=== PATIENT | male | born 1960 | race Hispanic/Latino ===

== ENCOUNTER → 2017-11-21 10:46 | Outpatient (CLI) | payer OTHER, SELFPAY ==
[2017-11-21 11:20] LABS: Add Manual Diff / Slide Review NO; Basophils Percent Auto 0.6 % (0-2); Eosinophils Percent Auto 1.3 % (2-4); Hemoglobin 18.3 g/dL (13.5-17.5); Lymphocytes Percent Auto 16.5 % (25-40); Mean Corpuscular HGB Conc 33.2 % (30-36); Mean Corpuscular Hemoglobin 29.6 PG (26-34); Mean Corpuscular Volume 89.1 fL (80-100); Monocytes Percent Auto 8.3 % (3-14); Neutrophils Absolute Auto 5000 /uL (3000-5900); Neutrophils Percent Auto 73.3 % (50-75); Platelet Count 177 X10^3/uL (150-400); Red Blood Cell Count 6.18 X10^6/uL (4.5-5.9); Red Cell Distribution Width 14.9 % (11.6-14.8); White Blood Cell Count 6.8 X10^3/uL (4.5-11.0)
[2017-11-21 11:43] LABS: Alanine Aminotransferase 49 IU/L (21-72); Albumin 4.5 g/dL (3.5-5.0); Albumin Globulin Ratio 1.5 (1.0-2.8); Alkaline Phosphatase 120 U/L (38-126); Aspartate Aminotransferase 31 IU/L (17-59); BUN Creatinine Ratio 20.9 (6-22); Blood Urea Nitrogen 23 mg/dL (9-20); Calcium 9.4 mg/dL (8.4-10.2); Carbon Dioxide 24 mmol/L (22-32); Chloride 94 mmol/L (98-107); Cholesterol 225 mg/dL (140-199); Estimated Glomerular Filt Rate > 60.0 mL/min (>60); Globulin 3.1 g/dL (1.7-4.1); Glucose 335 mg/dL (70-100); HDL Cholesterol 32 mg/dL (40-60); HEMOLYSIS < 15 (0-50); LDL Cholesterol Calculated 166 mg/dL (<100); Potassium 5.1 mmol/L (3.4-5.1); Sodium 135 mmol/L (137-145); Total Protein 7.6 g/dL (6.3-8.2); Triglycerides 136 mg/dL (35-150)
[2017-11-21 12:04] LABS: Free T4, Direct Thyroxine 1.09 ng/dL (0.78-2.19)
[2017-11-21 12:18] LABS: Thyroid Stimulating Hormone 1.04 uIU/mL (0.47-4.68)
[2017-11-21 12:25] LABS: Creatinine Urine Random 71.5 mg/dL
[2017-11-21 12:31] LABS: Microalbumin Urine Random 14.3 mg/dL (0-1.6)
[2017-11-21 16:51] LABS: Hemoglobin A1C% w Est Avg Glu > 14.0 % (4.0-6.0)
[2017-11-29 15:35] LABS: Testosterone Free 400.1 pg/mL (35.0-155.0); Testosterone Total 1192 ng/dL (250-1100)
== END ==
PROVIDERS: PCP Internal Medicine; Visit Provider Internal Medicine
DX: E11.9 Type 2 diabetes mellitus without complications (principal); E29.1 Testicular hypofunction; G47.33 Obstructive sleep apnea (adult) (pediatric)
CPT/HCPCS: 36415; 80053; 80061; 82043; 82570; 83036; 84402; 84403; 84439; 84443; 85025

== ENCOUNTER → 2018-02-26 10:24 | Outpatient (CLI) | payer OTHER, SELFPAY ==
[2018-02-26 11:59] LABS: BUN Creatinine Ratio 25.5 (6-22); Blood Urea Nitrogen 28 mg/dL (9-20); Calcium 9.2 mg/dL (8.4-10.2); Carbon Dioxide 30 mmol/L (22-32); Chloride 95 mmol/L (98-107); Estimated Glomerular Filt Rate > 60.0 mL/min (>60); Glucose 296 mg/dL (70-100); HEMOLYSIS < 15 (0-50); Potassium 4.7 mmol/L (3.4-5.1); Sodium 137 mmol/L (137-145)
[2018-02-26 12:12] LABS: Hemoglobin A1C% w Est Avg Glu > 14.0 % (4.0-6.0)
== END ==
PROVIDERS: PCP Internal Medicine; Visit Provider Internal Medicine
DX: E11.65 Type 2 diabetes mellitus with hyperglycemia (principal)
CPT/HCPCS: 36415; 80048; 83036

== ENCOUNTER → 2019-12-05 11:44 | Outpatient (CLI) | payer OTHER, SELFPAY ==
[2019-12-05 12:50] LABS: Hemoglobin A1C% w Est Avg Glu 13.5 % (4.0-6.0)
[2019-12-05 13:15] LABS: BUN Creatinine Ratio 22.7 (6-22); Blood Urea Nitrogen 20 mg/dL (9-20); Calcium 9.7 mg/dL (8.4-10.2); Carbon Dioxide 27 mmol/L (22-32); Chloride 93 mmol/L (98-107); Estimated Glomerular Filt Rate > 60.0 mL/min (>60); HEMOLYSIS < 15 (0-50); Potassium 5.2 mmol/L (3.4-5.1); Sodium 130 mmol/L (137-145)
[2019-12-05 13:29] LABS: Glucose 790 mg/dL (70-100)
== END ==
LOC: LAB 11:46
PROVIDERS: Nurse Practitioner Family; Family Provider Internal Medicine; PCP Internal Medicine; Referring Provider Internal Medicine; Visit Provider Internal Medicine
DX: E11.65 Type 2 diabetes mellitus with hyperglycemia (principal)
CPT/HCPCS: 36415; 80048; 83036

== ENCOUNTER 2019-12-05 15:15 | Emergency (ER) | payer OTHER, SELFPAY ==
[2019-12-05 15:16] VITALS: BP 128/67; PULSE 82; RESP 16; TEMP 37.1; O2SAT 95; BMI 27.3
[2019-12-05 15:49] LABS: Add Manual Diff / Slide Review NO; Basophils Absolute Auto 0 /uL (0-100); Basophils Percent Auto 0.5 % (0-2); Eosinophils Absolute Auto 100 /uL (0-450); Hematocrit 45.2 % (41-53); Hemoglobin 15.4 g/dL (13.5-17.5); Lymphocytes Absolute Auto 1100 /uL (1100-4500); Lymphocytes Percent Auto 18.9 % (25-40); Mean Corpuscular Hemoglobin 29.5 PG (26-34); Mean Corpuscular Volume 86.7 fL (80-100); Monocytes Absolute Auto 500 /uL (0-900); Monocytes Percent Auto 8.3 % (3-14); Neutrophils Absolute Auto 4200 /uL (1500-7000); Neutrophils Percent Auto 71.3 % (50-75); Platelet Count 137 X10^3/uL (150-400); Red Blood Cell Count 5.22 X10^6/uL (4.5-5.9); Red Cell Distribution Width 13.9 % (11.6-14.8); White Blood Cell Count 5.9 X10^3/uL (4.5-11.0)
[2019-12-05 15:51] LABS: INR 0.9 (0.9-1.3); Prothrombin Time 10.9 SECONDS (10.1-12.7)
[2019-12-05 15:54] LABS: PTT Partial Thromboplastin Tim 30 SECONDS (26.4-36.2)
[2019-12-05 15:55] LABS: Alanine Aminotransferase 31 IU/L (<50); Albumin 4.1 g/dL (3.5-5.0); Albumin Globulin Ratio 1.4 (1.0-2.8); Alkaline Phosphatase 241 U/L (38-126); Aspartate Aminotransferase 29 IU/L (17-59); BUN Creatinine Ratio 22.8 (6-22); Bilirubin Total 0.8 mg/dL (0.2-1.3); Blood Urea Nitrogen 23 mg/dL (9-20); Calcium 9.3 mg/dL (8.4-10.2); Carbon Dioxide 25 mmol/L (22-32); Chloride 98 mmol/L (98-107); Estimated Glomerular Filt Rate > 60.0 mL/min (>60); Globulin 2.9 g/dL (1.7-4.1); HEMOLYSIS 47 (0-50); Lipase 126 U/L (23-300); Potassium 4.7 mmol/L (3.4-5.1); Sodium 131 mmol/L (137-145)
[2019-12-05 16:20] LABS: Glucose 656 mg/dL (70-100)
[2019-12-05 16:26] VITALS: BP 121/70; PULSE 78; RESP 16; O2SAT 99
[2019-12-05] MEDS: SODIUM CHLORIDE 0.9% 1,000 ML 1000 ML IV ×2 (16:28→17:41)
[2019-12-05 16:30] LABS: Appearance Urine UA CLEAR; Bilirubin Urine UA NEGATIVE (NEGATIVE); Color Urine UA YELLOW; Glucose Urine UA 3+ g/dL (Negative); Ketones Urine UA NEGATIVE (NEGATIVE); Leukocyte Esterase Urine UA NEGATIVE (NEGATIVE); Nitrite Urine UA NEGATIVE (Negative); Occult Blood Urine UA TRACE-INTACT (Negative); Protein Urine UA NEGATIVE (Negative); Specific Gravity Urine UA <=1.005 (1.000-1.035); Urobilinogen Urine UA 0.2 E.U./dL (0.2); pH Urine UA 6.5 (4.5-8.0)
[2019-12-05 16:32] LABS: Bacteria Urine None Seen
[2019-12-05 16:43] LABS: Culture Indicated Urine Cult Not Indicated; RBC Urine 0-1/HPF (0-5/HPF); Urine Comments Microscopic Normal; WBC Urine 0-1/HPF (0-5/HPF)
[2019-12-05] MEDS: INSULIN REGULAR 100 UNIT/ML 3 ML VIAL 10 UNIT IV (17:41)
--- NOTE | 2019-12-05 17:59 | ED_ITS ---
HPI - General Adult <Rolando Gresham DO - Last Filed: 12/06/19 05:29> General Chief complaint: Diabetic Problem Stated complaint: HIGH BLOOD SUGAR Time Seen by Provider: 12/05/19 16:41 Source: patient Mode of arrival: Ambulatory Limitations: no limitations History of Present Illness HPI narrative: 58-year-old male nonsmoker type 2 diabetic presents at the request of his primary care provider for evaluation of critically elevated glucose. [place] and has not had access to his medications and was encouraged to come home by his primary care provider. Outpatient labs were ordered earlier and found his sugar to be over 700. He denies any headache, blurred vision or nausea, vomiting or diarrhea. He has no chest pain or shortness of breath. He denies any significant fatigue. He denies any symptoms whatsoever and is already bagging for discharge. Onset (ago): day(s) Relieving factors: none Exacerbating factors: none Treatments prior to arrival: none Related Data Home Medications Medication Instructions Recorded Confirmed testosterone cypionate 200 mg/mL 200 mg IM ONCE 11/20/17 12/05/19 intramuscular oil Previous Rx's Medication Instructions Recorded glipizide 10 mg tablet, extended 10 mg PO DAILY #60 tab 12/05/19 release 24 hr hydrocortisone 1 % topical cream 1 applictn TOP BID PRN 7 Days #30 12/05/19 gram metformin 500 mg tablet 1,000 mg PO BID #120 tab 12/05/19 Allergies Allergy/AdvReac Type Severity Reaction Status Date / Time No Known Drug Allergies Allergy Verified 12/05/19 15:16 <Clement Salas MD - Last Filed: 12/06/19 07:16> General Source: patient Mode of arrival: Ambulatory Review of Systems <Rolando Gresham DO - Last Filed: 12/06/19 05:29> Constitutional Constitutional: Denies chills, Denies fatigue, Denies fever(s), Denies frequent falls, Denies lethargy and Denies weakness Eyes Eyes: Denies change in vision, Denies eye discharge, Denies irritation and Denies loss of vision ENT Ears, Nose, Mouth, and Throat: Denies change in voice, Denies dizziness, Denies neck pain, Denies sore throat and Denies throat swelling Cardiovascular Cardiovascular: Denies chest pain, Denies irregular heart rhythm, Denies lightheadedness, Denies palpitations, Denies dyspnea, Denies dyspnea on exertion and Denies orthopnea Respiratory Respiratory: Denies cough, Denies dyspnea, Denies dyspnea on exertion and Denies wheezing Gastrointestinal Gastrointestinal: Denies abdominal pain, Denies change in bowel habits, Denies diarrhea, Denies nausea and Denies vomiting Musculoskeletal Musculoskeletal: Denies neck pain and Denies numbness Integumentary/Breasts Skin/Breast: Denies pruritus, Denies erythema, Denies rash and Denies wounds Neurologic Neurologic: Denies behavioral changes, Denies confusion, Denies dizziness, Denies frequent falls, Denies loss of vision, Denies numbness and Denies weakness Psychiatric Psychiatric: Denies anxiety, Denies behavioral changes, Denies confusion, Denies depression, Denies homicidal ideation and Denies suicidal ideation Endocrine Endocrine: Denies fatigue, Denies flushing and Denies palpitations Hematologic/Lymphatic Hematologic/Lymphatic: Denies easy bruising Allergic/Immunologic Allergic/Immunologic: Denies urticaria, Denies throat swelling and Denies wheezing Patient History <Rolando Gresham DO - Last Filed: 12/06/19 05:29> Medical History (Updated 12/05/19 @ 18:16 by Rolando Gresham DO) Diabetes mellitus type 2, controlled (Inactive) Diabetes type 2, uncontrolled (Chronic) Hirschsprung's disease (Chronic) Male hypogonadism (Chronic) Obstructive sleep apnea (Chronic) Phimosis of penis (Acute) PTSD (post-traumatic stress disorder) (Chronic) Surgical History S/P knee surgery (Inactive) S/P partial colectomy (Inactive) Family History Father Diabetes mellitus Pancreatic adenoma Grandmother Colon cancer Social History marital status: number of children: 4 household members: spouse and children lives independently: Yes caregiver/support person: No housing: other pets and animals: Yes education level: master's degree occupational status: employed current occupational exposures/hazards: Yes daniel[employer] special daniel needs: No leisure activities: exercise and other (Photography) Smoking Status: Never smoker Tobacco: How many years used: 0 second hand exposure: No alcohol intake: never (Rarely) substance use type: does not use <Clement Salas MD - Last Filed: 12/06/19 07:16> Smoking Status: Never smoker Exam <Rolando Gresham DO - Last Filed: 12/06/19 05:29> Narrative Exam Narrative: GENERAL: [58] year old patient appears stated age. Well- nourished, well-developed patient, in mild distress. HEAD: Atraumatic. Normocephalic. EYES: Pupils equal round and reactive. Extraocular motions intact. No scleral icterus. No injection or drainage. ENT: Nose without bleeding, purulent drainage. Throat without erythema, tonsillar hypertrophy or exudate. Airway patent. NECK: Trachea midline. Non tender CARDIOVASCULAR: Regular rate and rhythm without murmurs, gallops, or rubs. RESPIRATORY: Clear to auscultation. Breath sounds equal bilaterally. No wheezes, rales, or rhonchi. GASTROINTESTINAL: Abdomen soft, non-tender, nondistended. EXTREMITIES: No edema or joint tenderness. BACK: Nontender without deformity or crepitance. No flank tenderness. NEURO: AOx3. SKIN: No rash or erythema of visible areas Initial Vital Signs Initial Vital Signs: Vital Signs Temperature 98.7 F 12/05/19 15:16 Pulse Rate 82 12/05/19 15:16 Respiratory Rate 16 12/05/19 15:16 Blood Pressure 128/67 12/05/19 15:16 Pulse Oximetry 95 12/05/19 15:16 <Clement Salas MD - Last Filed: 12/06/19 07:16> Initial Vital Signs Initial Vital Signs: Vital Signs Temperature 98.7 F 12/05/19 15:16 Pulse Rate 82 12/05/19 15:16 Respiratory Rate 16 12/05/19 15:16 Blood Pressure 128/67 12/05/19 15:16 Pulse Oximetry 95 12/05/19 15:16 Course <Rolando Gresham DO - Last Filed: 12/06/19 05:29> Orders Ordered: Discontinued Medications Sodium Chloride (Normal Saline 0.9%) 1,000 mls @ 1,000 mls/hr IV BOLUS ONE Stop: 12/05/19 17:24 Last Infusion: 12/05/19 17:29 Dose: 0 mls/hr Documented by: Admin: 06/19/20 16:28 Dose: 1,000 mls/hr Documented by: ANTONI Sodium Chloride (Normal Saline 0.9%) 1,000 mls @ 1,000 mls/hr IV BOLUS ONE Stop: 12/05/19 17:45 Last Infusion: 12/05/19 18:55 Dose: 0 mls/hr Documented by: Admin: 12/05/19 17:41 Dose: 1,000 mls/hr Documented by: DASIA Insulin Human Regular (Humulin R) 10 unit IV NOW ONE Stop: 12/05/19 16:47 Last Admin: 12/05/19 17:41 Dose: 10 unit Documented by: DASIA Cosigned by: JEROME Vital Signs Vital signs: Vital Signs - 8 hr 12/05/19 15:16 12/05/19 16:26 12/05/19 18:01 Temperature 98.7 F Pulse Rate 82 78 75 Respiratory Rate 16 16 17 Blood Pressure 128/67 Blood Pressure [Left Arm] 121/70 147/98 H Pulse Oximetry 95 99 99 <Clement Salas MD - Last Filed: 12/06/19 07:16> Orders Ordered: Discontinued Medications Sodium Chloride (Normal Saline 0.9%) 1,000 mls @ 1,000 mls/hr IV BOLUS ONE Stop: 12/05/19 17:24 Last Infusion: 12/05/19 17:29 Dose: 0 mls/hr Documented by: Admin: 12/05/19 16:28 Dose: 1,000 mls/hr Documented by: ANTONI Sodium Chloride (Normal Saline 0.9%) 1,000 mls @ 1,000 mls/hr IV BOLUS ONE Stop: 12/05/19 17:45 Last Infusion: 12/05/19 18:55 Dose: 0 mls/hr Documented by: Admin: 12/05/19 17:41 Dose: 1,000 mls/hr Documented by: DASIA Insulin Human Regular (Humulin R) 10 unit IV NOW ONE Stop: 12/05/19 16:47 Last Admin: 12/05/19 17:41 Dose: 10 unit Documented by: DASIA Cosigned by: SCANAPGavin Vital Signs Vital signs: Vital Signs - 8 hr 12/05/19 15:16 12/05/19 16:26 12/05/19 18:01 Temperature 98.7 F Pulse Rate 82 78 75 Respiratory Rate 16 16 17 Blood Pressure 128/67 Blood Pressure [Left Arm] 121/70 147/98 H Pulse Oximetry 95 99 99 Medical Decision Making <Rolando Gresham DO - Last Filed: 12/06/19 05:29> Lab Data Result diagrams: 12/05/19 15:24 12/05/19 19:10 Labs: Lab Results 12/05/19 12/05/19 12/05/19 Range/Units 15:21 15:24 15:24 WBC 5.9 (4.5-11.0) X10^3/uL RBC 5.22 (4.5-5.9) X10^6/uL Hgb 15.4 (13.5-17.5) g/dL Hct 45.2 (41-53) % MCV 86.7 (80-100) fL MCH 29.5 (26-34) PG MCHC 34.0 (30-36) % RDW 13.9 (11.6-14.8) % Plt Count 137 L (150-400) X10^3/uL Neut % (Auto) 71.3 (50-75) % Lymph % (Auto) 18.9 L (25-40) % [place] % (Auto) 8.3 (3-14) % Eos % (Auto) 1.0 L (2-4) % Baso % (Auto) 0.5 (0-2) % Neut # (Auto) 4200 (0405-0655) /uL Lymph # (Auto) 1100 (0134-1832) /uL [place] # (Auto) 500 (0-900) /uL Eos # (Auto) 100 (0-450) /uL Baso # (Auto) 0 (0-100) /uL PT 10.9 (10.1-12.7) SECONDS INR 0.9 (0.9-1.3) APTT 30 (26.4-36.2) SECONDS Sodium (137-145) mmol/L Potassium (3.4-5.1) mmol/L Chloride (98-107) mmol/L Carbon Dioxide (22-32) mmol/L BUN (9-20) mg/dL Creatinine (0.66-1.25) mg/dL Estimated GFR (>60) mL/min BUN/Creatinine Ratio (6-22) Glucose (70-100) mg/dL Calcium (8.4-10.2) mg/dL Total Bilirubin (0.2-1.3) mg/dL AST (17-59) IU/L ALT (<50) IU/L Alkaline Phosphatase (38-126) U/L Total Protein (6.3-8.2) g/dL Albumin (3.5-5.0) g/dL Globulin (1.7-4.1) g/dL Albumin/Globulin Ratio (1.0-2.8) Lipase (23-300) U/L Urine Color Yellow Urine Appearance Clear Urine pH 6.5 (4.5-8.0) Ur Specific [place] <=1.005 (1.000-1.035) Urine Protein Negative (Negative) Urine Glucose (UA) 3+ H (Negative) g/dL Urine Ketones Negative (NEGATIVE) Urine Occult Blood Trace-intact (Negative) Urine Nitrate Negative (Negative) Urine Bilirubin Negative (NEGATIVE) Urine Urobilinogen 0.2 (0.2) E.U./dL Ur Leukocyte Esterase Negative (NEGATIVE) Urine RBC 0-1/hpf (0-5/HPF) Urine WBC 0-1/hpf (0-5/HPF) Urine Bacteria None seen (None) Ur Culture Indicated? Cult not indicated Micro UA Comment Microscopic normal 12/05/19 12/05/19 Range/Units 15:24 19:10 WBC (4.5-11.0) X10^3/uL RBC (4.5-5.9) X10^6/uL Hgb (13.5-17.5) g/dL Hct (41-53) % MCV (80-100) fL MCH (26-34) PG MCHC (30-36) % RDW (11.6-14.8) % Plt Count (150-400) X10^3/uL Neut % (Auto) (50-75) % Lymph % (Auto) (25-40) % [place] % (Auto) (3-14) % Eos % (Auto) (2-4) % Baso % (Auto) (0-2) % Neut # (Auto) (1420-7734) /uL Lymph # (Auto) (7498-6975) /uL [place] # (Auto) (0-900) /uL Eos # (Auto) (0-450) /uL Baso # (Auto) (0-100) /uL PT (10.1-12.7) SECONDS INR (0.9-1.3) APTT (26.4-36.2) SECONDS Sodium 131 L 138 (137-145) mmol/L Potassium 4.7 3.9 (3.4-5.1) mmol/L Chloride 98 108 H (98-107) mmol/L Carbon Dioxide 25 27 (22-32) mmol/L BUN 23 H 20 (9-20) mg/dL Creatinine 1.01 0.81 (0.66-1.25) mg/dL Estimated GFR > 60.0 > 60.0 (>60) mL/min BUN/Creatinine Ratio 22.8 H 24.7 H (6-22) Glucose 656 H* 225 H D (70-100) mg/dL Calcium 9.3 8.8 (8.4-10.2) mg/dL Total Bilirubin 0.8 (0.2-1.3) mg/dL AST 29 (17-59) IU/L ALT 31 (<50) IU/L Alkaline Phosphatase 241 H (38-126) U/L Total Protein 7.0 (6.3-8.2) g/dL Albumin 4.1 (3.5-5.0) g/dL Globulin 2.9 (1.7-4.1) g/dL Albumin/Globulin Ratio 1.4 (1.0-2.8) Lipase 126 (23-300) U/L Urine Color Urine Appearance Urine pH (4.5-8.0) Ur Specific [place] (1.000-1.035) Urine Protein (Negative) Urine Glucose (UA) (Negative) g/dL Urine Ketones (NEGATIVE) Urine Occult Blood (Negative) Urine Nitrate (Negative) Urine Bilirubin (NEGATIVE) Urine Urobilinogen (0.2) E.U./dL Ur Leukocyte Esterase (NEGATIVE) Urine RBC (0-5/HPF) Urine WBC (0-5/HPF) Urine Bacteria (None) Ur Culture Indicated? Micro UA Comment Point of Care Testing Glucose POC 218 Point of care testing: Point of Care Testing Glucose POC 218 MDM Narrative Medical decision making narrative: patient here for abnormal glucose in the absence of any symptoms. No N/V/D. Glucose elevated due to medical n oncompliance. No evidence of significant dehdration. No electrolyte abnormalities. Reassuring VBG. No anion gap. Glucose reduced to the 200s after above stated therapies. Patient given extensive return precautions and has had his questions answered to his apparent satisfaction. <Clement Salas MD - Last Filed: 12/06/19 07:16> Lab Data Labs: Lab Results 12/05/19 12/05/19 12/05/19 Range/Units 15:21 15:24 15:24 WBC 5.9 (4.5-11.0) X10^3/uL RBC 5.22 (4.5-5.9) X10^6/uL Hgb 15.4 (13.5-17.5) g/dL Hct 45.2 (41-53) % MCV 86.7 (80-100) fL MCH 29.5 (26-34) PG MCHC 34.0 (30-36) % RDW 13.9 (11.6-14.8) % Plt Count 137 L (150-400) X10^3/uL Neut % (Auto) 71.3 (50-75) % Lymph % (Auto) 18.9 L (25-40) % [place] % (Auto) 8.3 (3-14) % Eos % (Auto) 1.0 L (2-4) % Baso % (Auto) 0.5 (0-2) % Neut # (Auto) 4200 (4491-7371) /uL Lymph # (Auto) 1100 (1510-8370) /uL [place] # (Auto) 500 (0-900) /uL Eos # (Auto) 100 (0-450) /uL Baso # (Auto) 0 (0-100) /uL PT 10.9 (10.1-12.7) SECONDS INR 0.9 (0.9-1.3) APTT 30 (26.4-36.2) SECONDS Sodium (137-145) mmol/L Potassium (3.4-5.1) mmol/L Chloride (98-107) mmol/L Carbon Dioxide (22-32) mmol/L BUN (9-20) mg/dL Creatinine (0.66-1.25) mg/dL Estimated GFR (>60) mL/min BUN/Creatinine Ratio (6-22) Glucose (70-100) mg/dL Calcium (8.4-10.2) mg/dL Total Bilirubin (0.2-1.3) mg/dL AST (17-59) IU/L ALT (<50) IU/L Alkaline Phosphatase (38-126) U/L Total Protein (6.3-8.2) g/dL Albumin (3.5-5.0) g/dL Globulin (1.7-4.1) g/dL Albumin/Globulin Ratio (1.0-2.8) Lipase (23-300) U/L Urine Color Yellow Urine Appearance Clear Urine pH 6.5 (4.5-8.0) Ur Specific [place] <=1.005 (1.000-1.035) Urine Protein Negative (Negative) Urine Glucose (UA) 3+ H (Negative) g/dL Urine Ketones Negative (NEGATIVE) Urine Occult Blood Trace-intact (Negative) Urine Nitrate Negative (Negative) Urine Bilirubin Negative (NEGATIVE) Urine Urobilinogen 0.2 (0.2) E.U./dL Ur Leukocyte Esterase Negative (NEGATIVE) Urine RBC 0-1/hpf (0-5/HPF) Urine WBC 0-1/hpf (0-5/HPF) Urine Bacteria None seen (None) Ur Culture Indicated? Cult not indicated Micro UA Comment Microscopic normal 12/05/19 12/05/19 Range/Units 15:24 19:10 WBC (4.5-11.0) X10^3/uL RBC (4.5-5.9) X10^6/uL Hgb (13.5-17.5) g/dL Hct (41-53) % MCV (80-100) fL MCH (26-34) PG MCHC (30-36) % RDW (11.6-14.8) % Plt Count (150-400) X10^3/uL Neut % (Auto) (50-75) % Lymph % (Auto) (25-40) % [place] % (Auto) (3-14) % Eos % (Auto) (2-4) % Baso % (Auto) (0-2) % Neut # (Auto) (1154-4442) /uL Lymph # (Auto) (8135-0503) /uL [place] # (Auto) (0-900) /uL Eos # (Auto) (0-450) /uL Baso # (Auto) (0-100) /uL PT (10.1-12.7) SECONDS INR (0.9-1.3) APTT (26.4-36.2) SECONDS Sodium 131 L 138 (137-145) mmol/L Potassium 4.7 3.9 (3.4-5.1) mmol/L Chloride 98 108 H (98-107) mmol/L Carbon Dioxide 25 27 (22-32) mmol/L BUN 23 H 20 (9-20) mg/dL Creatinine 1.01 0.81 (0.66-1.25) mg/dL Estimated GFR > 60.0 > 60.0 (>60) mL/min BUN/Creatinine Ratio 22.8 H 24.7 H (6-22) Glucose 656 H* 225 H D (70-100) mg/dL Calcium 9.3 8.8 (8.4-10.2) mg/dL Total Bilirubin 0.8 (0.2-1.3) mg/dL AST 29 (17-59) IU/L ALT 31 (<50) IU/L Alkaline Phosphatase 241 H (38-126) U/L Total Protein 7.0 (6.3-8.2) g/dL Albumin 4.1 (3.5-5.0) g/dL Globulin 2.9 (1.7-4.1) g/dL Albumin/Globulin Ratio 1.4 (1.0-2.8) Lipase 126 (23-300) U/L Urine Color Urine Appearance Urine pH (4.5-8.0) Ur Specific [place] (1.000-1.035) Urine Protein (Negative) Urine Glucose (UA) (Negative) g/dL Urine Ketones (NEGATIVE) Urine Occult Blood (Negative) Urine Nitrate (Negative) Urine Bilirubin (NEGATIVE) Urine Urobilinogen (0.2) E.U./dL Ur Leukocyte Esterase (NEGATIVE) Urine RBC (0-5/HPF) Urine WBC (0-5/HPF) Urine Bacteria (None) Ur Culture Indicated? Micro UA Comment Point of Care Testing Glucose POC 218 Point of care testing: Point of Care Testing Glucose POC 218 Discharge Plan Departure Patient Disposition: Home Clinical Impression: Diabetes mellitus Qualifiers: Diabetes mellitus type: type 2 Diabetes mellitus vessel traffic officer insulin use: unspecified vessel traffic officer insulin use status Diabetes mellitus complication status: without complication Qualified Code(s): E11.9 - Type 2 diabetes mellitus without complications Discharge Date/Time: 12/05/19 19:57 Instructions: DI for Diabetes Type 2 Activity Restrictions/Additional Instructions: *You have been diagnosed with [uncontrolled hyperglycemia secondary to medical noncompliance] *What to do: *Take medications as directed *Follow up with your primary care provider in 2-3 days, call for an appointment. Let them know you were seen in the Emergency Department and that we ask that you be seen in follow up *Return to ER if you should have any new, worsening or concerning symptoms Prescriptions: No Action testosterone cypionate [Depo-Testosterone] 200 mg/mL oil 200 mg IM ONCE RF: 0 hydrocortisone 1 % cream 1 applictn TOP BID PRN (Reason: phimosis) 7 Days Qty: 30 RF: 0 glipizide 10 mg tablet extended release 24hr 10 mg PO DAILY Qty: 60 RF: 0 metformin 500 mg tablet 1,000 mg PO BID Qty: 120 RF: 0 Referrals: Clement Slaughter MD [Primary Care Provider] -
[2019-12-05 18:01] VITALS: BP 147/98; PULSE 75; RESP 17; O2SAT 99
[2019-12-05 19:25] VITALS: BP 141/85; PULSE 66; RESP 13; O2SAT 99
[2019-12-05 19:33] LABS: BUN Creatinine Ratio 24.7 (6-22); Blood Urea Nitrogen 20 mg/dL (9-20); Calcium 8.8 mg/dL (8.4-10.2); Carbon Dioxide 27 mmol/L (22-32); Chloride 108 mmol/L (98-107); Estimated Glomerular Filt Rate > 60.0 mL/min (>60); Glucose 225 mg/dL (70-100); HEMOLYSIS 21 (0-50); Potassium 3.9 mmol/L (3.4-5.1); Sodium 138 mmol/L (137-145)
== END 2019-12-05 19:57 | disposition home or self-care (01) ==
PROVIDERS: Emergency Medicine; Emergency Provider Emergency Medicine; Family Provider Internal Medicine; PCP Internal Medicine
DX: E11.65 Type 2 diabetes mellitus with hyperglycemia (principal)
CPT/HCPCS: 36415; 80048; 80053; 81001; 82962; 83690; 85025; 85610; 85730; 93005; 96361; 96374; 99284

== ENCOUNTER → 2020-03-16 08:46 | Outpatient (CLI) | payer OTHER, SELFPAY ==
[2020-03-16 09:55] LABS: BUN Creatinine Ratio 19.8 (6-22); Blood Urea Nitrogen 16 mg/dL (9-20); Calcium 9.6 mg/dL (8.4-10.2); Carbon Dioxide 29 mmol/L (22-32); Chloride 100 mmol/L (98-107); Estimated Glomerular Filt Rate > 60.0 mL/min (>60); Glucose 180 mg/dL (70-100); HEMOLYSIS < 15 (0-50); Potassium 4.1 mmol/L (3.4-5.1); Sodium 137 mmol/L (137-145)
[2020-03-16 10:38] LABS: Albumin 4.3 g/dL (3.5-5.0)
[2020-03-16 10:47] LABS: Hemoglobin A1C% w Est Avg Glu 8.3 % (4.0-6.0)
[2020-03-17 07:27] LABS: Sex Hormone Binding Globulin 36.2 nmol/L (19.3-76.4)
[2020-03-18 18:41] LABS: Prostate Specific Antigen 1.04 ng/mL (0.10-4.00)
[2020-03-20 08:08] LABS: Percent Free Testosterone 3.17 % (1.50-4.20); Testosterone Free 10.44 ng/dL (5.00-21.00); Testosterone Total 329.4 ng/dL (264.0-916.0)
== END ==
PROVIDERS: Family Provider Internal Medicine; PCP Internal Medicine; Referring Provider Internal Medicine; Visit Provider Specialist
DX: E29.1 Testicular hypofunction (principal); N40.0 Benign prostatic hyperplasia without lower urinary tract symptoms; N52.9 Male erectile dysfunction, unspecified; E11.65 Type 2 diabetes mellitus with hyperglycemia
CPT/HCPCS: 36415; 80048; 82040; 83036; 84153; 84270; 84402; 84403

== ENCOUNTER → 2020-03-17 08:59 | Outpatient (CLI) | payer OTHER, SELFPAY ==
--- NOTE | 2020-03-17 10:22 | DIET.PN ---
Diabetes Intake: Initial Assessment Assess: Mr. Sawyer is a 59 YOM referred for type 2 diabetes. He has been having difficulty losing weight for the past several months. States blood sugar are all over the place and he has been experiencing LE peripheral neuropathy with UE joint pain. He recently moved to [place] for work and has not been able to keep to his normal routine since moving and Covid-19. Admits to drinking at least 6 cups of coffee per day and diet Pepsi in between. He does not drink any water. He has always been very active, but has not gotten back into a gym since moving. He has been able to lower his A1c since November. Labs: Per pt report: A1c: 8.3 150-200 some days >300 other days Meds: metformin: 500 mg TID; Glipizide: 10mg Diet: per 24 hr recall: B: [employer]bucks coffee, tomato mozz sandwich or grilled cheese w/ cheese Azeri L: drive thru borrito; ham/cheese sandwich, coffee D: [employer] pre-made dinner (fajita, pork chops) w/ salad Wt: 192 Ht: 67in BMI: 30.07 BP: DX: Altered nutrition related laboratory values related to impaired glucose metabolism, lack of previous exposure to nutrition information as evidenced by pt report, diagnosis of diabetes, previous diet high in refined carbohydrates. Intervention: 1. Completed intake assessment. Discussed barriers to care. 2. Discussed pathophysiology of diabetes. Reviewed A1c and its correlation to blood glucose numbers. Discussed recommended BG ranges. 3. Discussed importance of self-monitoring, how often, and when to check. Provided demonstration on use of glucometer. 4. Reviewed hyper/hypoglycemia and treatment. 5. Reviewed safe disposal of equipment (strip/lancets/insulin needles). 6. Created SMART goals for pt self-care and success. 7. Discussed program curriculum outline and class needs based on individual goals. SMART Goals: 1. Patient has a goal weight of 185 lbs for improved glycemic control through reducing carbohydrates to 45 grams at each meal and incorporating daily exercise. Monitor/Evaluate: Anticipate excellent compliance. Pt will attend full DSME program. Basic Nutrition class scheduled Apr 20.
== END ==
PROVIDERS: Family Provider Internal Medicine; PCP Internal Medicine; Referring Provider Internal Medicine; Visit Provider Internal Medicine
DX: E11.42 Type 2 diabetes mellitus with diabetic polyneuropathy (principal); E66.9 Obesity, unspecified; Z68.30 Body mass index [BMI] 30.0-30.9, adult; Z79.84 Long term (current) use of oral hypoglycemic drugs; Z71.3 Dietary counseling and surveillance
CPT/HCPCS: G0108

== ENCOUNTER → 2020-04-20 09:02 | Outpatient (CLI) | payer SELFPAY ==
--- NOTE | 2020-04-20 10:13 | DIET.PN ---
Diabetes: Healthy Eating 1 Intervention: ? Discussed pathophysiology of diabetes and impact of nutrition/diet on blood sugar control.? Discussed fed versus non-fed state.?? ? Reviewed importance of Balance, Variety, and Moderation. ? Discussed the effect of carbohydrates/protein/fat on blood sugar control.? ? Stressed importance of consistent carbohydrate intake at each meal and provided instructions for recommended servings/portions of carbohydrates/protein per meal. Provided educational material. ? Reviewed carbohydrate counting and measuring carbohydrate content via serving sizes and reading nutrition labels.? Provided handouts.?? ? Discussed the difference between simple versus complex carbohydrates and the effect of fiber on blood sugar control.? Discussed various methods to increase fiber content in diet. ? Discussed the plate method for creating more carbohydrate conscious balanced meals. ? Stressed importance of meal timing and not going >4-5 hours between meals. Encouraged adding protein to evening snack to support glucose control overnight. ? Discussed importance of making dietary habits part of lifestyle change.
== END ==
PROVIDERS: Family Provider Internal Medicine; PCP Internal Medicine; Referring Provider Internal Medicine; Visit Provider Internal Medicine
DX: E11.9 Type 2 diabetes mellitus without complications (principal); Z71.3 Dietary counseling and surveillance
CPT/HCPCS: G0109